=== PATIENT | male | born 1945 | race Caucasian/White ===

== ENCOUNTER 2021-10-04 15:00 | Outpatient (CLI) | payer MEDICARE, OTHER, SELFPAY ==
[2021-10-04 15:25] LABS: Troponin T (5th) Once 10 ng/L (0-15)
[2021-10-04 15:26] LABS: D Dimer 0.32 ug/mIFEU (0-0.59)
== END 2021-10-04 15:01 | disposition home or self-care (01) ==
LOC: LAB 15:05
PROVIDERS: PCP Internal Medicine; Visit Provider Nurse Practitioner
DX: R42 Dizziness and giddiness (principal)
CPT/HCPCS: 84484; 85378

== ENCOUNTER → 2021-11-04 09:34 | Outpatient (BNVA) | payer MEDICARE, OTHER, SELFPAY | PROVIDERS: PCP Internal Medicine; Visit Provider Internal Medicine Cardiovascular Disease | DX: I48.91 Unspecified atrial fibrillation (principal); I49.3 Ventricular premature depolarization | CPT/HCPCS: 99214 ==

== ENCOUNTER → 2021-12-03 10:34 | Outpatient (BNVA) | payer MEDICARE, OTHER, SELFPAY | PROVIDERS: PCP Internal Medicine; Visit Provider Internal Medicine Cardiovascular Disease | DX: I48.91 Unspecified atrial fibrillation (principal); I49.3 Ventricular premature depolarization; I25.10 Atherosclerotic heart disease of native coronary artery without angina pectoris; I83.93 Asymptomatic varicose veins of bilateral lower extremities; M19.90 Unspecified osteoarthritis, unspecified site; E66.9 Obesity, unspecified; Z68.36 Body mass index [BMI] 36.0-36.9, adult; Z87.891 Personal history of nicotine dependence | CPT/HCPCS: 99214 ==

== ENCOUNTER 2021-12-17 08:56 | Outpatient (CLI) | payer MEDICARE, OTHER, SELFPAY ==
[2021-12-17 09:17] VITALS: BMI 36.6
--- NOTE | 2021-12-17 09:30 | ECG_ITS ---
[facility] Test Date: 2021-12-17 Pat Name: John Rice Department: Room: Gender: Male Branch Lead: Katya Tatum : 1945 Requested By: Arlette Maharaj Order Number: [id number] Concepcion MD: Arlette Maharaj M.D. Interpretive Statements NAME OF STUDY: LEXISCAN SESTAMIBI STRESS TEST INDICATION: Atrial fibrillation/exertional dyspnea PROCEDURE: At the baseline, the blood pressure was 131/93 mmHg, oxygen saturation 96% with a heart rate of 79 beats per. The electrocardiogram showed atrial fibrillation with isolated PVC. Possible precordial lead reversal. Nonspecific ST-T wave changes. The Lexiscan was infused over a period of 20 seconds. A total of 0.4 milligrams of Lexiscan was infused. The stress phase was continued for a total of 5 minutes. Heart rate at the end of the stress phase was 82 bpm, oxygen saturation 95% with a blood pressure of 142/93 mmHg. The EKG at the peak infusion revealed no significant ST-T wave changes. The study was terminated due to protocol completion.. Sestamibi was injected 20 seconds after the Lexiscan infusion. Isolated PVCs noted during infusion and in recovery. Blood pressure at the end of the recovery phase was 121/88 mmHg, oxygen saturation 96% with a heart rate of 90 beats per minute. CONCLUSION: 1. No significant EKG changes with the LexiScan infusion. 2. No LexiScan induced chest pain or cardiac arrhythmia. 3. Normal blood pressure and heart rate response. 4. Sestamibi/sestamibi perfusion scan pending; see separate report. Electronically Signed On 12-22-2021 11:38:22 CDT by Arlette Maharaj M.D. [id number]
--- NOTE | 2021-12-17 09:31 | NMCV_ITS ---
NM kimi perf SPECT r/s* [id number] John Rice Age: 76 Gender: M : 1945 Exam Date: 12/17/2021 10:14 Ordering Phys: Arlette Maharaj MD ([email or web address]) Technologist: JOHANNA Velasco Exam Location: [facility] Indications: AFIB STRESS TEST [facility] IMAGE PROTOCOL Rest/Stress 1 Lexiscan Day Radiopharmaceutical Dose (mCi) Administration Site Administered by Rest: Tc-99m 10.8 IV JOHANNA Huggins Sestamibi Stress:Tc-99m 33.0 IV JOHANNA Huggins Sestamibi Rest: 17-Dec-2021 60 Discovery 630 Stress: 17-Dec-2021 30 Discovery 630 0.4mg Lexiscan. Images obtained in supine and prone position. SPECT RESULTS Technical Quality: Excellent Raw Data Analysis: Normal Image Corrections: No attenuation or motion correction applied Summed Stress Score: 5 Summed Rest Score: 4 Summed Difference Score: 1 PERFUSION FINDINGS Small size perfusion abnormality of mild severity of apical inferior, apical lateral and apical wen on rest images with subtle reversibility in apical lateral wen on stress images. FUNCTIONAL RESULTS (calculated via Gated SPECT) Stress Image LV EF (%): 33 Stress EDV (mL):197 TID: 1.01 Stress ESV (mL):132 FUNCTIONAL FINDINGS: The left ventricle is normal in size. Transient Ischemia Dilatation of 1. There is moderately reduced left ventricular global systolic function. The left ventricular ejection fraction is moderately reduced with a value of 33%. There is moderately decreased wall thickening. Increased end-diastolic end-systolic volume IMPRESSIONS 1. Small sized perfusion abnormality of mild severity of apical inferior, apical lateral and apical wen with subtle reversibility in apical lateral wen. 2. This may represent small myocardial infarction in LAD artery territory with minimal susy-infarct ischemia. 3. The left ventricular ejection fraction is moderately reduced with a value of 33% with global hypokinesis. 4. No significant EKG changes with Lexiscan infusion. Refer to separate report for details. Arlette Maharaj MD (Electronically Signed) Final Date: 22 December 2021 11:35 S
[2021-12-17 11:21] VITALS: BP 121/88; PULSE 84
[2021-12-17] MEDS: regadenoson 0.4 Mg/5 ml Syringe IVP (11:23)
== END 2021-12-17 08:57 | disposition home or self-care (01) ==
PROVIDERS: PCP Internal Medicine; Visit Provider Internal Medicine Cardiovascular Disease
DX: I48.91 Unspecified atrial fibrillation (principal); R06.09 Other forms of dyspnea
CPT/HCPCS: 78452; 93017; A9500; J2785

== ENCOUNTER 2022-05-17 08:24 | Outpatient (CLI) | payer MEDICARE, OTHER, SELFPAY ==
--- NOTE | 2022-05-17 08:34 | MR_ITS ---
WS: [id number] MRI LEFT SHOULDER NONCONTRAST TECHNIQUE: Sagittal T2, coronal T1, T2 and proton density imaging. Axial gradient PDE imaging. CLINICAL INFORMATION: INTERNAL DERANGEMENT OF LEFT SHOULDER COMPARISON: None. 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 Slight subacromial spurring. Small amount of fluid at the AC joint. Small amount of subacromial/subdeltoid fluid. Slight impingem ent on the distal supraspinatus. Tendinopathy in the distal supraspinatus. Chronic thinning of the di stal supraspinatus with a tiny undersurface tear. Tiny insertional tear at the infraspinatus insertio n. Normal teres minor. Chronic appearing tear involving the distal subscapularis with thinning of the dawson bscapularis tendon. Medial dislocation of the biceps tendon from the bicipital groove. This is adjace nt to the glenohumeral joint. Degenerative fraying of the glenoid labrum. Small joint effusion. MR/MR shoulder LT wo con* [id number] IMPRESSION: 1. Medial dislocation biceps tendon from the bicipital groove. Biceps tendon a djacent to the glenohumeral joint. 2. 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 Im pingement on the distal supraspinatus. Tendinopathy with tiny undersurface tear distal supraspinatus. 3. Tiny insertional tear at the infraspinatus insertion. 4. Chronic appearing tear of the distal subscapularis with chronic thinning. 5. Small joint effusion.
== END 2022-05-17 08:25 | disposition home or self-care (01) ==
LOC: RAD 08:25
PROVIDERS: PCP Internal Medicine; Visit Provider Internal Medicine
DX: M24.812 Other specific joint derangements of left shoulder, not elsewhere classified (principal); M19.012 Primary osteoarthritis, left shoulder
CPT/HCPCS: 73221

== ENCOUNTER → 2023-04-18 13:52 | Outpatient (BNVA) | payer MEDICARE, OTHER, SELFPAY | PROVIDERS: PCP Internal Medicine; Visit Provider Nurse Practitioner Family | DX: L71.8 Other rosacea (principal); D22.5 Melanocytic nevi of trunk; L57.8 Other skin changes due to chronic exposure to nonionizing radiation; L81.4 Other melanin hyperpigmentation; L85.3 Xerosis cutis | CPT/HCPCS: 99214 ==

== ENCOUNTER → 2024-04-23 09:33 | Outpatient (BNVA) | payer MEDICARE, OTHER, SELFPAY | PROVIDERS: PCP Internal Medicine; Visit Provider Nurse Practitioner Family | DX: B35.1 Tinea unguium (principal); L71.8 Other rosacea; B35.3 Tinea pedis; D23.72 Other benign neoplasm of skin of left lower limb, including hip; L57.0 Actinic keratosis; D22.5 Melanocytic nevi of trunk | CPT/HCPCS: 17000; 99214 ==

== ENCOUNTER → 2025-01-15 15:28 | Outpatient (BNVA) | payer MEDICARE, OTHER, SELFPAY | PROVIDERS: PCP Internal Medicine; Visit Provider Nurse Practitioner Family | DX: B35.1 Tinea unguium (principal); L71.8 Other rosacea | CPT/HCPCS: 99213 ==